=== PATIENT | female | born 1970 | race Caucasian/White ===

== ENCOUNTER → 2016-07-26 | Outpatient (CLI) | payer BC | LOC: BHSO 08:53 | DX: F41.1 Generalized anxiety disorder (principal) ==

== ENCOUNTER → 2016-08-16 | Outpatient (CLI) | payer BC | LOC: BHSO 08:51 | DX: F41.1 Generalized anxiety disorder (principal) ==

== ENCOUNTER → 2016-09-13 | Outpatient (CLI) | payer BC | LOC: BHSO 07:59 | DX: F41.1 Generalized anxiety disorder (principal) ==

== ENCOUNTER → 2016-09-20 | Outpatient (CLI) | payer BC | LOC: BHSO 07:59 | DX: F41.8 Other specified anxiety disorders (principal) ==

== ENCOUNTER → 2016-11-01 | Outpatient (CLI) | payer BC | LOC: BHSO 09:07 | DX: F41.1 Generalized anxiety disorder (principal) ==

== ENCOUNTER → 2016-12-25 | Outpatient (CLI) | payer BC | LOC: BHSO 09:03 | DX: F41.9 Anxiety disorder, unspecified (principal) ==

== ENCOUNTER → 2017-01-22 | Outpatient (CLI) | payer BC | LOC: BHSO 09:12 | DX: F41.9 Anxiety disorder, unspecified (principal) ==

== ENCOUNTER → 2017-03-26 | Outpatient (CLI) | payer BC | LOC: BHSO 10:52 | DX: F41.9 Anxiety disorder, unspecified (principal) ==

== ENCOUNTER 2017-08-24 07:59 | Day surgery (SDC) | payer BC ==
[~2017-08-24] VITALS: Ht 160 cm; Wt 63.6 kg
[2017-08-24 08:20] VITALS: BP 102/73; PULSE 94; TEMP 98.3
[2017-08-24] MEDS ORDERED: MIRALAX 255 GM255 GM PO (09:27)
[2017-08-24 09:45] VITALS: BP 97/53; PULSE 68; TEMP 97.9
[2017-08-24 10:00] VITALS: BP 92/60; PULSE 66
== END 2017-08-24 10:30 | disposition home or self-care (01) ==
LOC: SDCO 07:59
DX: K59.00 Constipation, unspecified (principal)
CPT/HCPCS: J2250; J3010; J7030

== ENCOUNTER → 2018-05-27 | Outpatient (CLI) | payer BC ==
[~2018-05-27] MED LIST: MIRALAX 255 GM255 GM PO
== END ==
LOC: MC.RAD 08:19
DX: Z12.31 Encounter for screening mammogram for malignant neoplasm of breast (principal)

== ENCOUNTER → 2019-11-28 | Outpatient (CLI) | payer BC | LOC: MC.RAD 09:00 | DX: Z12.31 Encounter for screening mammogram for malignant neoplasm of breast (principal) ==

== ENCOUNTER → 2020-03-29 | Outpatient (CLI) | payer BC | LOC: BHSO 15:57 | DX: F41.1 Generalized anxiety disorder (principal) ==

== ENCOUNTER → 2020-04-28 | Outpatient (CLI) | payer BC | LOC: BHSO 15:51 | DX: F41.1 Generalized anxiety disorder (principal) ==

== ENCOUNTER → 2021-12-27 | Outpatient (CLI) | payer BC | LOC: MC.RAD 11:30 | DX: Z12.31 Encounter for screening mammogram for malignant neoplasm of breast (principal) ==

== ENCOUNTER → 2024-02-25 | Outpatient (CLI) | payer BC | LOC: MC.RAD 07:08 | DX: Z12.31 Encounter for screening mammogram for malignant neoplasm of breast (principal) ==